=== PATIENT | female | born 1985 | race Caucasian/White ===

== ENCOUNTER → 2017-01-05 | Outpatient (CLI) | payer MEDICAID ==
[~2017-01-05] MED LIST: IBUP-232 PO; PRENCAP10 PO
== END ==
LOC: CDED 09:35
PROVIDERS: ATTEND Obstetrics & Gynecology
DX: O24.419 Gestational diabetes mellitus in pregnancy, unspecified control (principal); Z3A.00 Weeks of gestation of pregnancy not specified
CPT/HCPCS: 97802

== ENCOUNTER 2017-02-07 02:33 | Inpatient (IN) | payer MEDICAID ==
[~2017-02-07] VITALS: Ht 167.6 cm; Wt 90.7 kg
[2017-02-07] VITALS (33 sets, daily range): BP systolic 83–128; BP diastolic 16–100; PULSE 72–112; RESP 18–20; TEMP 97.8–98.7
[2017-02-07] MEDS ORDERED: MINERAL OIL 10 ML VIAL TOP PRN (03:00)
[2017-02-07] MEDS ORDERED: OXYTOCIN 30 UNITS 500ML PREMIX IV ONE (03:00)
[2017-02-07] MEDS ORDERED: LIDOCAINE HCL 1% 50 ML VIAL INFIL PRN (03:00)
[2017-02-07] MEDS ORDERED: PRENCAP10 PO (03:07)
[2017-02-07] MEDS ORDERED: CITRIC ACID-SODIUM CITRATE LIQ 30 ML UDC PO SCH (03:15)
[2017-02-07] MEDS ORDERED: NS 1000 ML IV PRN (03:15)
[2017-02-07] MEDS ORDERED: LACTATED RINGER'S 1000 ML BOLUS IV PRN (03:15)
[2017-02-07] MEDS ORDERED: NS 500 ML BOLUS IV PRN (03:15)
[2017-02-07] MEDS ORDERED: ONDANSETRON HCL 4 MG/2 ML VIAL IV PRN (03:15)
[2017-02-07] MEDS ORDERED: LIDOCAINE HCL 1% 50 ML VIAL I-DERMAL PRN (03:15)
[2017-02-07 03:28] LABS: AUTOMATED NEUTROPHIL # 7.5 TH/MM3 (1.8-7.7); BASOPHIL # 0.1 TH/MM3 (0-0.2); BASOPHIL % 0.8 % (0.0-2.0); EOSINOPHIL # 0.1 TH/MM3 (0-0.4); EOSINOPHIL % 1.2 % (0.0-4.0); HEMATOCRIT 37.1 % (35.0-46.0); LYMPH % 25.8 % (9.0-44.0); MEAN CELL VOLUME 90.6 FL (80.0-100.0); MEAN CORPUSCULAR HEMOGLOBIN 31.5 PG (27.0-34.0); MEAN CORPUSCULAR HGB CONC 34.8 % (32.0-36.0); MONO % 6.8 % (0.0-8.0); NEUT % 65.4 % (16.0-70.0); PLATELET COUNT 184 TH/MM3 (150-450); RED BLOOD COUNT 4.09 MIL/MM3 (4.00-5.30); RED CELL DISTRIBUTION WIDTH 13.9 % (11.6-17.2); WHITE BLOOD COUNT 11.4 TH/MM3 (4.0-11.0)
[2017-02-07 03:30] LABS: BLOOD, URINE NEG (NEG); COMMENT (UR) CULT NOT INDICATED; CULTURE IF INDICATED CULT NOT INDICATED; GLUCOSE,URINE NEG (NEG); KETONE, URINE 40 mg/dL (NEG); MUCUS URINE FEW /lpf (OCC); NITRITE,URINE NEG (NEG); SQUAMOUS EPITHELIAL CELL URINE 2 /hpf (0-5); URINE COLOR YELLOW (YELLW/STRAW)
[2017-02-07 03:31] LABS: HEMO FLAGS DIFF FINAL
[2017-02-07] MEDS ORDERED: fentaNYL 2MCG-BUPIV 0.125% INJ 100 ML ONE (03:43)
[2017-02-07 04:15] LABS: ALKALINE PHOSPHATASE 139 U/L (45-117); TOTAL BILIRUBIN ADULT 0.6 MG/DL (0.2-1.0)
[2017-02-07 04:21] LABS: ALT (GPT) 20 U/L (10-53); ANION GAP 12 MEQ/L (5-15); AST (GOT) 25 U/L (15-37); BICARBONATE 20.4 MEQ/L (21.0-32.0); BLOOD UREA NITROGEN 12 MG/DL (7-18); CHLORIDE 104 MEQ/L (98-107); GLOMERULAR FILTRATION RATE 114 ML/MIN (>89); POTASSIUM 3.9 MEQ/L (3.5-5.1); SODIUM (NA) 136 MEQ/L (136-145)
[2017-02-07] MEDS: LACTATED RINGER'S 1000 ML IV SCH (04:31)
--- NOTE | 2017-02-07 06:24 | PD.OB.DELI ---
Anesthesia: Epidural Episiotomy: None Vaginal Delivery: Normal Presentation: Occiput anterior Nuchal Cord: None Delayed cord clamping (45 sec): Yes Infant: Male One Minute : 8 Five Minute : 9 Weight: 8 4 Infant Care: Suctioned, Spontaneous crying Placenta: Spontaneous delivery Laceration: No lacerations Judie Roman MD Feb 07, 2017 06:24
[2017-02-07] MEDS ORDERED: ZOLPIDEM TARTRATE 5 MG TAB PO PRN (06:30)
[2017-02-07] MEDS ORDERED: ALUMINUM/MAGNESIUM/SIMETH 30 ML CUP PO PRN (06:30)
[2017-02-07] MEDS ORDERED: BENZOCAINE 20% TOPICAL SPRAY 60 ML CAN TOPICAL PRN (06:30)
[2017-02-07] MEDS ORDERED: WITCH HAZEL 50%/GLYCERIN 12.5% 40 PAD JAR TOPICAL PRN (06:30)
[2017-02-07] MEDS ORDERED: DOCUSATE SODIUM 50 MG/SENNA 8.6 MG TAB PO PRN (06:30)
[2017-02-07] MEDS ORDERED: ONDANSETRON ODT 4 MG TAB PO PRN (06:30)
[2017-02-07] MEDS ORDERED: SODIUM CHLORIDE 0.9% FLUSH 5 ML FLUSH IV PRN (06:30)
[2017-02-07] MEDS: IBUPROFEN 600 MG TAB PO PRN ×2 (12:53→20:53)
[2017-02-07] MEDS ORDERED: MEASLES, MUMPS, RUBELLA VACCINE 0.5 ML VIAL SQ ONE (16:00)
[2017-02-07] MEDS ORDERED: DIPHTH/TETANUS/ACEL PERTUSSIS (BOOSTER) 0.5 ML VIAL/PFS IM ONE (16:00)
[2017-02-07] MEDS: ACETAMINOPHEN 325 MG TAB PO PRN (20:53)
--- NOTE | 2017-02-08 07:30 | HHI.OB ---
Subjective Post Day: 1 Remarks PPD#1; Doing well, transitioning ok Objective Vitals/I&O Vital Signs Date Time Temp Pulse Resp B/P Pulse Ox O2 Delivery O2 Flow Rate FiO2 02/07/17 19:52 97.8 79 18 115/64 02/07/17 08:30 98.4 74 18 108/64 02/07/17 07:35 82 105/60 02/07/17 07:32 112 83/16 Objective Remarks GENERAL: Well-nourished, well-developed patient. CARDIOVASCULAR: Regular rate and rhythm without murmurs, gallops, or rubs. RESPIRATORY: Breath sounds equal bilaterally. No accessory muscle use. ABDOMEN/GI: Abdomen soft, non-tender. Fundus: Firm, non-tender at umbilicus. GENITOURINARY: Light to moderate bleeding. EXTREMITIES: No cyanosis or edema, non-tender, without signs of DVT. Medications and IVs Current Medications Medications (Trade) Dose Ordered Sig/Indira Route Start Time Stop Time Status Last Admin Lactated Ringer's 1,000 ml @ 125 mls/hr Q8H IV 02/07/17 03:15 02/07/17 04:31 Lactated Ringer's 1,000 ml @ 3,000 mls/hr BOLUS PRN IV 02/07/17 03:15 Sodium Chloride 500 ml @ 1,000 mls/hr BOLUS PRN IV 02/07/17 03:15 (NS 1000 ml Inj) 1,000 ml @ 100 mls/hr Q10H PRN IV 02/07/17 03:15 (Zofran Inj) 4 mg Q6H PRN IV 02/07/17 03:15 (fentaNYL INJ) 50 mcg Q1H PRN IV PUSH 02/07/17 03:00 (fentaNYL INJ) 100 mcg Q1H PRN IV PUSH 02/07/17 03:00 (Muri-Lube Oil) 10 ml UNSCH PRN TOP 02/07/17 03:00 (NS Flush) 2 ml BID IV 02/07/17 09:00 (NS Flush) 2 ml UNSCH PRN IV 02/07/17 06:30 (Tylenol) 650 mg Q4H PRN PO 02/07/17 06:30 02/07/17 20:53 (Motrin) 600 mg Q6H PRN PO 02/07/17 06:30 02/07/17 20:53 (Americaine 20% Top Spr) 1 spray Q4H PRN TOPICAL 02/07/17 06:30 (Tucks Pads) 1 applic QID PRN TOPICAL 02/07/17 06:30 (Lesvia-Colace) 2 tab Q12H PRN PO 02/07/17 06:30 (Ambien) 5 mg HS PRN PO 02/07/17 06:30 (Mag-Al Plus Susp Liq) 15 ml Q8H PRN PO 02/07/17 06:30 (Zofran Odt) 4 mg Q6H PRN PO 02/07/17 06:30 Assessment/Plan Assessment and Plan PPD#1 doing well; plan discharge for Discharge Planning does not meet criteria Emerson Perry MD Feb 08, 2017 07:30
[2017-02-08 07:40] VITALS: BP 113/76; PULSE 68; RESP 16; TEMP 97.8
[2017-02-08] MEDS: SODIUM CHLORIDE 0.9% FLUSH 5 ML FLUSH IV SCH (09:00)
[2017-02-08] MEDS: IBUPROFEN 600 MG TAB PO PRN ×2 (10:15→21:51)
[2017-02-08] MEDS: ACETAMINOPHEN 325 MG TAB PO PRN ×2 (11:17→21:51)
[2017-02-08 21:40] VITALS: BP 124/79; PULSE 79; RESP 18; TEMP 98.6
[2017-02-09] MEDS: LACTATED RINGER'S 1000 ML IV SCH (02:52)
[2017-02-09] MEDS: SODIUM CHLORIDE 0.9% FLUSH 5 ML FLUSH IV SCH (02:53)
[2017-02-09 08:00] VITALS: BP 117/73; PULSE 64; RESP 16; TEMP 97.8
--- NOTE | 2017-02-09 08:23 | HHI.OB ---
Subjective Post Day: 2 Remarks doing well, ready for d/c Objective Vitals/I&O Vital Signs Date Time Temp Pulse Resp B/P Pulse Ox O2 Delivery O2 Flow Rate FiO2 02/09/17 08:00 64 16 117/73 02/09/17 08:00 97.8 02/08/17 22:51 18 02/08/17 22:51 18 02/08/17 21:40 98.6 79 18 124/79 Objective Remarks GENERAL: Well-nourished, well-developed patient. CARDIOVASCULAR: Regular rate and rhythm without murmurs, gallops, or rubs. RESPIRATORY: Breath sounds equal bilaterally. No accessory muscle use. ABDOMEN/GI: Abdomen soft, non-tender. Fundus: Firm, non-tender at umbilicus. GENITOURINARY: Light to moderate bleeding. EXTREMITIES: No cyanosis or edema, non-tender, without signs of DVT. Medications and IVs Current Medications Medications (Trade) Dose Ordered Sig/Indira Route Start Time Stop Time Status Last Admin Lactated Ringer's 1,000 ml @ 125 mls/hr Q8H IV 02/07/17 03:15 02/07/17 04:31 Lactated Ringer's 1,000 ml @ 3,000 mls/hr BOLUS PRN IV 02/07/17 03:15 Sodium Chloride 500 ml @ 1,000 mls/hr BOLUS PRN IV 02/07/17 03:15 (NS 1000 ml Inj) 1,000 ml @ 100 mls/hr Q10H PRN IV 02/07/17 03:15 (Zofran Inj) 4 mg Q6H PRN IV 02/07/17 03:15 (fentaNYL INJ) 50 mcg Q1H PRN IV PUSH 02/07/17 03:00 (fentaNYL INJ) 100 mcg Q1H PRN IV PUSH 02/07/17 03:00 (Muri-Lube Oil) 10 ml UNSCH PRN TOP 02/07/17 03:00 (NS Flush) 2 ml BID IV 02/07/17 09:00 (NS Flush) 2 ml UNSCH PRN IV 02/07/17 06:30 (Tylenol) 650 mg Q4H PRN PO 02/07/17 06:30 02/08/17 21:51 (Motrin) 600 mg Q6H PRN PO 02/07/17 06:30 02/08/17 21:51 (Americaine 20% Top Spr) 1 spray Q4H PRN TOPICAL 02/07/17 06:30 (Tucks Pads) 1 applic QID PRN TOPICAL 02/07/17 06:30 (Lesvia-Colace) 2 tab Q12H PRN PO 02/07/17 06:30 02/08/17 21:56 (Ambien) 5 mg HS PRN PO 02/07/17 06:30 (Mag-Al Plus Susp Liq) 15 ml Q8H PRN PO 02/07/17 06:30 (Zofran Odt) 4 mg Q6H PRN PO 02/07/17 06:30 Assessment/Plan Assessment and Plan PPD#2 doing well; plan discharge for Discharge Planning routine Attending Attestation pt seen by Bethany Andrews MD Feb 09, 2017 08:23
[2017-02-09] MEDS ORDERED: IBUP-232 PO (08:24)
--- NOTE | 2017-02-09 08:25 | HHI.DCPOC ---
Discharge Care Plan Your Health Problems Are: Pelvic pain Report Symptoms to Your Doctor -Temperate above 100.5 degrees -Redness, of incision or excessive or foul smelling drainage -Unusual pain or calf pain -Increased vaginal bleeding -Painful or difficulty urinating -Feelings of extreme sadness or anxiety after 2 weeks Goals to Promote Your Health * To prevent worsening of your condition and complications * To maintain your health at the optimal level Directions to Meet Your Goals Take your medications as prescribed Follow your dietary instruction Follow activity as directed Ensure plenty of rest for recovery Drink fluids for hydration Keep your appointments as scheduled Take your immunizations and boosters as scheduled If your symptoms worsen call your PCP, if no PCP go to Urgent Care Center or Emergency Room Smoking is Dangerous to Your Health. Avoid second hand smoke Call the 24-hour crisis hotline for domestic abuse at Bethany Fritz MD Feb 09, 2017 08:25
== END 2017-02-09 13:27 | disposition home or self-care (01) | DRG 775 ==
LOC: H2EA 02:33 → H1EA 08:30
PROVIDERS: ADMIT Obstetrics & Gynecology; ATTEND Obstetrics & Gynecology
PROC: 10E0XZZ Delivery of Products of Conception, External Approach (ICD-10-PCS; principal; 2017-02-07)
PROC: 00HU33Z Insertion of Infusion Device into Spinal Canal, Percutaneous Approach (ICD-10-PCS; 2017-02-07)
PROC: 3E0R3CZ (ICD-10-PCS; 2017-02-07)
DX: O80 Encounter for full-term uncomplicated delivery (principal); Z37.0 Single live birth; Z3A.39 39 weeks gestation of pregnancy
CPT/HCPCS: 59025; 80053; 81001; 85025; 86900; 86901; J7120